=== PATIENT | male | born 1975 | race Caucasian/White ===

== ENCOUNTER 2021-05-22 14:11 | Inpatient (IN) | payer OTHER ==
[2021-05-22] MEDS ORDERED: NICOTINE 10 MG CARTRIDGE (INHALER) IH PRN (15:38)
[2021-05-22] MEDS ORDERED: MAGNESIUM CITRATE 300 ML BOTTLE PO PRN (15:38)
[2021-05-22] MEDS ORDERED: BISMUTH SUBSALICYLATE 524 MG/30 ML PO PRN (15:38)
[2021-05-22] MEDS ORDERED: MENTHOL/PHENOL 1 EACH UD MM PRN (15:38)
[2021-05-22] MEDS ORDERED: LOPERAMIDE HCL 2 MG CAPSULE PO PRN (15:38)
[2021-05-22] MEDS ORDERED: ONDANSETRON *ODT* 4 MG TABLET SL PRN (15:38)
[2021-05-22] MEDS ORDERED: MAGNESIUM HYDROX 2400MG/30ML ORAL SUSPENSION 30 ML CUP PO PRN (15:38)
[2021-05-22] MEDS ORDERED: MAG HYDROX/AL HYDROX/SIMETH 30 ML UNIT-DOSE CUP PO PRN (15:38)
[2021-05-22] MEDS ORDERED: ACETAMINOPHEN 325 MG TABLET (FP) PO PRN (15:38)
[2021-05-22 18:17] VITALS: BMI 18.8
[2021-05-22] MEDS: hydrOXYzine PAMOATE 25 MG CAPSULE (FP) PO SCH ×2 (20:12→22:43)
[2021-05-22] MEDS: IBUPROFEN 400 MG TABLET (FP) PO PRN (20:12)
[2021-05-22] MEDS: THIAMINE HCL 100 MG TABLET (FP) PO SCH (22:43)
[2021-05-22] MEDS: METHOCARBAMOL 500 MG TABLET PO PRN (22:43)
[2021-05-22] MEDS: MELATONIN 5 MG TABLETS PO SCH (22:43)
[2021-05-23] MEDS: hydrOXYzine PAMOATE 25 MG CAPSULE (FP) PO SCH ×5 (07:35→22:17)
[2021-05-23] MEDS: BACITRACIN 15 GM TUBE TOPICAL OINTMENT TP SCH (10:23)
[2021-05-23] MEDS: PRENATAL VITAMINS W/ FOLIC ACID TABLET (FP) PO SCH (10:23)
[2021-05-23] MEDS ORDERED: cloNIDine HCL 0.1 MG TABLET PO PRN (20:40)
[2021-05-23] MEDS ORDERED: methaDONE HCL 10 MG TABLET (FOR DETOX USE ONLY) PO ONE (20:40)
[2021-05-23] MEDS ORDERED: methaDONE HCL 10 MG TABLET (FOR DETOX USE ONLY) ONE (22:16)
[2021-05-23] MEDS: THIAMINE HCL 100 MG TABLET (FP) PO SCH (22:17)
[2021-05-23] MEDS: MELATONIN 5 MG TABLETS PO SCH (22:17)
[2021-05-23] MEDS: METHOCARBAMOL 500 MG TABLET PO PRN (22:17)
[2021-05-24] MEDS: IBUPROFEN 400 MG TABLET (FP) PO PRN ×2 (06:11→17:38)
[2021-05-24] MEDS: hydrOXYzine PAMOATE 25 MG CAPSULE (FP) PO SCH ×5 (06:11→22:55)
[2021-05-24] MEDS ORDERED: methaDONE HCL 10 MG TABLET (FOR DETOX USE ONLY) PO ONE (10:00)
[2021-05-24] MEDS: BACITRACIN 15 GM TUBE TOPICAL OINTMENT TP SCH (10:20)
[2021-05-24] MEDS: PRENATAL VITAMINS W/ FOLIC ACID TABLET (FP) PO SCH (10:21)
[2021-05-24 12:48] LABS: HEMATOCRIT 34.5 % (35.4-49); HEMOGLOBIN 11.6 GM/dL (11.7-16.9); MCH 31.7 pg (25.7-33.7); MCHC 33.7 g/dl (32.0-35.9); MEAN CELL VOLUME 94.1 fl (80-96); MEAN PLT VOLUME 6.7 fl (7.5-11.1); PLATELET COUNT 275 10^3/uL (134-434); RBC 3.66 M/mm3 (4.00-5.60); RDW 15.1 % (11.9-15.9); WHITE BLOOD COUNT 4.2 K/mm3 (4.0-10.0)
[2021-05-24 12:58] LABS: ALBUMIN 3.2 g/dl (3.4-5.0); BLOOD UREA NITROGEN 7.6 mg/dL (7-18)
[2021-05-24 13:01] LABS: CREATININE 0.8 mg/dL (0.55-1.3)
[2021-05-24 13:02] LABS: BILIRUBIN,TOTAL 0.4 mg/dL (0.2-1); TOT PROT 8.7 g/dl (6.4-8.2)
[2021-05-24 13:07] LABS: SARS-CoV-2 NAA Not Detected (Not Detected)
[2021-05-24] MEDS: METHOCARBAMOL 500 MG TABLET PO PRN ×2 (17:38→22:55)
[2021-05-24] MEDS: MELATONIN 5 MG TABLETS PO SCH (22:54)
[2021-05-24] MEDS: THIAMINE HCL 100 MG TABLET (FP) PO SCH (22:55)
[2021-05-25] MEDS: ACETAMINOPHEN 325 MG TABLET (FP) PO PRN ×2 (03:24→18:15)
[2021-05-25] MEDS: hydrOXYzine PAMOATE 25 MG CAPSULE (FP) PO SCH ×5 (06:16→22:57)
[2021-05-25] MEDS: PRENATAL VITAMINS W/ FOLIC ACID TABLET (FP) PO SCH (12:15)
[2021-05-25] MEDS: BACITRACIN 15 GM TUBE TOPICAL OINTMENT TP SCH (12:15)
[2021-05-25 17:25] LABS: HIV INTERPRETATION NEGATIVE (NEGATIVE)
[2021-05-25 19:06] VITALS: BP 125/85; PULSE 68; TEMP 97.7
[2021-05-25] MEDS: THIAMINE HCL 100 MG TABLET (FP) PO SCH (22:57)
[2021-05-25] MEDS: MELATONIN 5 MG TABLETS PO SCH (22:57)
[2021-05-26] MEDS ORDERED: methaDONE HCL 10 MG TABLET (FOR DETOX USE ONLY) PO ONE (10:00)
== END 2021-05-26 02:22 | disposition left against medical advice (07) | DRG 770 ==
LOC: YASAS 14:11 → UNDOADMIN 17:06 → Y3N 17:06
PROVIDERS: ADMIT Allergy & Immunology; ATTEND Allergy & Immunology
PROC: HZ2ZZZZ Detoxification Services for Substance Abuse Treatment (ICD-10-PCS; principal; 2021-05-22)
DX: F11.23 Opioid dependence with withdrawal (principal); F14.20 Cocaine dependence, uncomplicated; F17.210 Nicotine dependence, cigarettes, uncomplicated; D64.9 Anemia, unspecified; E88.09 Other disorders of plasma-protein metabolism, not elsewhere classified; M46.24 Osteomyelitis of vertebra, thoracic region; M46.49 Discitis, unspecified, multiple sites in spine; J18.9 Pneumonia, unspecified organism; K40.90 Unilateral inguinal hernia, without obstruction or gangrene, not specified as recurrent; H55.00 Unspecified nystagmus; R73.9 Hyperglycemia, unspecified; R63.4 Abnormal weight loss; Z68.1 Body mass index [BMI] 19.9 or less, adult
CPT/HCPCS: 36415; 80053; 83036; 85027; 86780; 87389; 87811; 93005; 93010; C9803; J0735; U0003; U0005

== ENCOUNTER 2021-05-25 20:05 | Emergency (ER) | payer OTHER ==
[2021-05-25 20:18] VITALS: BP 119/72; PULSE 77; TEMP 100.2; BMI 19.9
[2021-05-25] MEDS ORDERED: ALBUTEROL SO4 HFA INHALER IH ONE ×2 (21:23→21:55)
[2021-05-25] MEDS ORDERED: ACETAMINOPHEN 500 MG TABLET (FP) PO ONE (21:23)
[2021-05-25] MEDS ORDERED: ACETAMINOPHEN 500 MG TABLET (FP) ONE (21:57)
[2021-05-25 22:13] LABS: BASO % 0.6 % (0-2.0); EOS % 3.3 % (0-4.5); HEMATOCRIT 34.1 % (35.4-49); HEMOGLOBIN 11.7 GM/dL (11.7-16.9); LYMPH % 45.6 % (8-40); MCH 31.6 pg (25.7-33.7); MCHC 34.3 g/dl (32.0-35.9); MEAN CELL VOLUME 92.2 fl (80-96); MEAN PLT VOLUME 6.2 fl (7.5-11.1); MONO % 11.4 % (3.8-10.2); NEUT % 39.1 % (42.8-82.8); PLATELET COUNT 266 10^3/uL (134-434); RDW 15.1 % (11.9-15.9); WHITE BLOOD COUNT 5.3 K/mm3 (4.0-10.0)
[2021-05-25 22:29] LABS: INR 1.1 (0.83-1.09); PROTHROMBIN TIME (PATIENT) 12.7 SEC (9.7-13.0)
[2021-05-25 22:38] LABS: CALCIUM 9.1 mg/dL (8.5-10.1)
[2021-05-25 22:39] LABS: ALBUMIN 3.2 g/dl (3.4-5.0); BLOOD UREA NITROGEN 8.8 mg/dL (7-18)
[2021-05-25 22:42] LABS: CREATININE 0.8 mg/dL (0.55-1.3)
[2021-05-25 22:44] LABS: BILIRUBIN,TOTAL 0.3 mg/dL (0.2-1); TOT PROT 8.9 g/dl (6.4-8.2)
[2021-05-25] MEDS ORDERED: PIPERACILLIN/TAZOB 4.5 GM 4.5 GM in DEXTROSE 5%-WATER 100 ML IVPB ONE (23:41)
[2021-05-26] MEDS ORDERED: VANCOMYCIN 1 GM in D5W (PRE-DOCKED) 1,000 MG/250 ML IVPB ONE (00:12)
[2021-05-26] MEDS ORDERED: PIPERACILLIN/TAZOB 4.5 GM 4.5 GM/100 ML BAG IVPB ONE (00:44)
== END 2021-05-26 03:45 | disposition short-term general hospital (02) ==
LOC: JER 20:05
DX: M46.40 Discitis, unspecified, site unspecified (principal); M46.24 Osteomyelitis of vertebra, thoracic region; J18.9 Pneumonia, unspecified organism
CPT/HCPCS: 36415; 71046-TC-FY; 71275-TC; 80053; 85025; 85610; 93005; 93010; 99291; 99292; Q9967

== ENCOUNTER 2022-05-14 16:04 | Inpatient (IN) | payer OTHER ==
[2022-05-14 19:52] VITALS: BMI 18.4
[2022-05-14] MEDS ORDERED: NALOXONE HCL 0.4 MG/ML VIAL IM PRN (21:43)
[2022-05-14] MEDS ORDERED: NALOXONE HCL (KLOXXADO) 8 MG SPRAY NS PRN (21:43)
[2022-05-14] MEDS ORDERED: BENZOCAINE/MENTHOL (CHLORASEPTIC ) LOZENGE MM PRN (21:43)
[2022-05-14] MEDS ORDERED: MAG HYDROX/AL HYDROX/SIMETH 30 ML UNIT-DOSE CUP PO PRN (21:43)
[2022-05-14] MEDS ORDERED: P-EPHED 60MG/TRIPROLIDI 2.5MG TABLET PO PRN (21:43)
[2022-05-14] MEDS ORDERED: ACETAMINOPHEN 325 MG TABLET (FP) PO PRN ×2 (21:43)
[2022-05-14] MEDS ORDERED: hydrOXYzine PAMOATE 25 MG CAPSULE (FP) PO PRN (21:43)
[2022-05-14] MEDS ORDERED: IBUPROFEN 400 MG TABLET (FP) PO PRN (21:43)
[2022-05-14] MEDS ORDERED: MAGNESIUM HYDROX 2400MG/30ML ORAL SUSPENSION 30 ML CUP PO PRN (21:43)
[2022-05-14] MEDS ORDERED: METHOCARBAMOL 500 MG TABLET PO PRN (21:43)
[2022-05-14] MEDS ORDERED: LOPERAMIDE HCL 2 MG CAPSULE PO PRN (21:43)
[2022-05-14] MEDS ORDERED: POLYETHYLENE GLYCOL (HEALTHYLAX) 3350 17 GM PACKET PO PRN (21:43)
[2022-05-14] MEDS ORDERED: DICYCLOMINE HCL 10 MG CAPSULE PO PRN (21:43)
[2022-05-14] MEDS ORDERED: ONDANSETRON *ODT* 4 MG TABLET SL PRN (21:43)
[2022-05-14] MEDS ORDERED: guaiFENesin 200 MG/10 ML 10 ML UNIT-DOSE CUPS PO PRN (21:43)
[2022-05-14] MEDS: THIAMINE HCL 100 MG TABLET (FP) PO SCH (22:53)
[2022-05-14] MEDS: MELATONIN 5 MG TABLETS PO SCH (22:53)
[2022-05-14] MEDS: IBUPROFEN 600 MG TABLET (FP) PO PRN (22:59)
[2022-05-15] MEDS ORDERED: PRENATAL VITAMINS W/ FOLIC ACID TABLET (FP) PO SCH (10:00)
[2022-05-15] MEDS: BISMUTH SUBSALICYLATE 524 MG/30 ML PO PRN ×3 (10:20→22:49)
[2022-05-15 10:26] LABS: HEMOGLOBIN 11.9 GM/dL (11.7-16.9); MCH 30.3 pg (25.7-33.7); MCHC 33.9 g/dl (32.0-35.9); MEAN CELL VOLUME 89.4 fl (80-96); MEAN PLT VOLUME 7.3 fl (7.5-11.1); PLATELET COUNT 258 10^3/uL (134-434); RBC 3.91 M/mm3 (4.00-5.60); RDW 16.9 % (11.9-15.9); WHITE BLOOD COUNT 4.5 K/mm3 (4.0-10.0)
[2022-05-15 10:56] LABS: CALCIUM 8.7 mg/dL (8.5-10.1)
[2022-05-15 10:57] LABS: ALBUMIN 3.3 g/dl (3.4-5.0); BLOOD UREA NITROGEN 9.7 mg/dL (7-18)
[2022-05-15 11:00] LABS: CREATININE 0.8 mg/dL (0.55-1.3)
[2022-05-15 11:02] LABS: BILIRUBIN,TOTAL 0.8 mg/dL (0.2-1); TOT PROT 7.8 g/dl (6.4-8.2)
[2022-05-15] MEDS: IBUPROFEN 600 MG TABLET (FP) PO PRN (13:19)
[2022-05-15] MEDS: MELATONIN 5 MG TABLETS PO SCH (22:40)
[2022-05-15] MEDS: THIAMINE HCL 100 MG TABLET (FP) PO SCH (22:40)
[2022-05-16 09:16] VITALS: BP 110/61; PULSE 73; RESP 18; TEMP 98.1
== END 2022-05-16 10:19 | disposition home or self-care (01) | DRG 773 ==
LOC: YASAS 16:04 → Y3N 21:53
PROVIDERS: ADMIT Allergy & Immunology; ATTEND Surgery
PROC: HZ2ZZZZ Detoxification Services for Substance Abuse Treatment (ICD-10-PCS; principal; 2022-05-14)
DX: F11.23 Opioid dependence with withdrawal (principal); F14.20 Cocaine dependence, uncomplicated; Z59.00 Homelessness unspecified; Z87.891 Personal history of nicotine dependence
CPT/HCPCS: 36415; 80053; 85027; 86780; 87811; C9803-CS; U0003; U0005